=== PATIENT | female | born 1975 | race Caucasian/White ===

== ENCOUNTER 2024-12-30 20:18 | Emergency (ER) | payer SELFPAY ==
[~2024-12-30] VITALS: Ht 165.1 cm; Wt 65.4 kg
[2024-12-30 20:22] VITALS: TEMP 36.9; O2SAT 99
[2024-12-30 21:16] LABS: HEMATOCRIT. 46.2 % (36.0-48.0); HEMOGLOBIN. 15.8 g/dL (12.0-16.0); MEAN CORPUSCULAR HEMOGLOBIN 33.5 pg (28.0-32.0); MEAN CORPUSCULAR HGB CONC 34.3 g/dL (31.0-37.0); MEAN CORPUSCULAR VOLUME 97.6 fL (81.0-99.0); MEAN PLATELET VOLUME 9.6 fl (7.4-10.4); PLATELET 214 x1000/uL (130-400); RED BLOOD CELL COUNT 4.74 mill/uL (4.2-5.4); RED CELL DISTRIBUTION WIDTH 13.8 % (11.6-14.6); WHITE BLOOD COUNT 9.2 x1000/uL (4.5-11.0)
[2024-12-30 21:19] LABS: DIFFERENTIAL COMMENT 1
[2024-12-30 21:30] LABS: CHLORIDE 105 mEq/L (98-107); POTASSIUM 4.1 mEq/L (3.5-5.1); SODIUM 134 mEq/L (136-145)
[2024-12-30 21:31] LABS: CALCIUM 9.8 mg/dL (8.7-10.4); CARBON DIOXIDE 17 mEq/L (21-32)
[2024-12-30 21:36] LABS: CREATININE 1.5 mg/dL (0.6-1.0); GLUCOSE 123 mg/dL (70-105); TROPONIN I HIGH SENSITIVITY 13 ng/L (3.0-34); UREA NITROGEN BLOOD 20 mg/dL (9-23)
[2024-12-30 21:38] LABS: PLATELET ESTIMATE NORMAL
[2024-12-30] MEDS: ONDANSETRON 4MG ODT PO ONE (22:27)
[2024-12-30] MEDS: FAMOTIDINE 20MG TABLET PO ONE (22:27)
[2024-12-30 22:44] LABS: HCG SCREEN NEGATIVE
[2024-12-30 22:50] LABS: ALANINE AMINOTRANSFERASE 13 IU/L (10-49); ALBUMIN 5.3 g/dL (3.2-4.8); ASPARTATE AMINOTRANSFERASE 21 IU/L (<34); BILIRUBIN DIRECT 0.1 mg/dL (<=3.0); BILIRUBIN TOTAL 0.4 mg/dL (0.1-1.0); PROTEIN TOTAL 8.9 g/dL (6.0-8.3)
[2024-12-30] MEDS: SODIUM CHLORIDE 0.9% 1,000 ML IV ONE (23:58)
[2024-12-31] MEDS ORDERED: ONDA-239 PO (01:18)
[2024-12-31] MEDS ORDERED: FAMO40TA70 MT (01:18)
[2024-12-31 01:28] VITALS: BP 128/68; PULSE 89; RESP 18; O2SAT 98
== END 2024-12-31 01:31 | disposition home or self-care (01) ==
LOC: ER 20:18
DX: A08.4 Viral intestinal infection, unspecified (principal); N20.0 Calculus of kidney; N28.1 Cyst of kidney, acquired; I44.4 Left anterior fascicular block; Z79.899 Other long term (current) drug therapy
CPT/HCPCS: 99285; 74176; 96360; 71045; 80076; 80048; 84703; 83690; 85025; 84484; 36415; 93005; Q0162; J7030